=== PATIENT | female | born 1955 | race Caucasian/White ===

== ENCOUNTER 2018-09-17 18:01 | Emergency (ER) | payer MEDICAID, OTHER ==
[~2018-09-17] VITALS: Ht 152.4 cm; Wt 52.6 kg
--- NOTE | 2018-09-17 18:38 | ED Neurological Problem ---
General Chief Complaint: Neurological Problems Nursing Triage Note: Caregiver states that the patient had an episode of seizure like activity. Caregiver describes the patients hand kaykay up to her chest and patient was staring off, not responding to the people around her. Patient was incontinent during episode. Nursing Sepsis Screen: No Definite Risk Source: patient, family, EMS, RN notes reviewed, old records, caregiver Exam Limitations: no limitations History of Present Illness Date Seen by Provider: September 17, 2018 Time Seen by Provider: 18:05 Initial Comments Patient brought to the ED by EMS p/ reportedly having seizure like activity described as a relatively short period of her arms flexing up against her chest and the patient not being responsive to her surroundings. Was incontinent of bowel and bladder. (+) PMH of a seizure many years ago p/ suffering an anoxic brain injury secondary to a cardiac arrest. Timing/Duration: other (just DOCTOR OF DENTAL MEDICINE) Associated Symptoms: seizures (???) Allergies and Home Medications Allergies Coded Allergies: No Known Drug Allergies (Unverified , 09/17/18) Patient Home Medication List Home Medication List Reviewed: Yes Review of Systems Review of Systems Constitutional: see HPI : No Psychiatric/Neurological: See HPI, Tonic Clonic Seizures (???), Other (period of unresponsiveness) All Other Systems Reviewed Negative Unless Noted: Yes (Negative excepted noted.) Past Dwbbvez-Okbcqh-Ehqecg Hx Patient Social History Alcohol Use: Regular Use Alcohol Beverage of Choice: Beer Recreational Drug Use: No Smoking Status: Current Everyday Smoker Type Used: Cigarettes 2nd Hand Smoke Exposure: Yes Recent Foreign Travel: No Contact w/Someone Who Travel: No Recent Infectious Disease Expo: No Recent Hopitalizations: No Physical Abuse: No Sexual Abuse: No Mistreated: No Fear: No Immunizations Up To Date Tetanus Booster (TDap): Unknown Seasonal Allergies Seasonal Allergies: No Past Medical History Surgeries: Yes Coronary Stent, Hysterectomy Respiratory: No Cardiac: Yes (Cardiac Arrest) Heart Attack, High Cholesterol, Hypertension Neurological: Yes (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 0oz. 52.243305ar; BMI Method:Stated General Appearance: WD/WN, no apparent distress HEENT: PERRL/EOMI, normal ENT inspection, pharynx normal Neck: supple Respiratory: no respiratory distress Cardiovascular: regular rate, rhythm Gastrointestinal: non tender Neurologic/Psychiatric: alert, normal mood/affect, oriented x 3 Motor/Sensory: weak motor strength RUE (old), weak motor strength RLE (old) Skin: warm/dry Progress/Results/Core Measures Results/Orders Lab Results Laboratory Tests Test 09/17/18 19:02 09/17/18 19:50 Range/Units Urine Color YELLOW Urine Clarity CLEAR Urine pH 7.0 5-9 Urine Specific Garibaldi 1.010 L 1.016-1.022 Urine Protein NEGATIVE NEGATIVE Urine Glucose (UA) NEGATIVE NEGATIVE Urine Ketones NEGATIVE NEGATIVE Urine Nitrite NEGATIVE NEGATIVE Urine Bilirubin NEGATIVE NEGATIVE Urine Urobilinogen 0.2 NORMAL MG/DL Urine Leukocyte Esterase NEGATIVE NEGATIVE Urine RBC (Auto) NEGATIVE NEGATIVE Urine RBC NONE /HPF Urine WBC 0-2 /HPF Urine Squamous Epithelial Cells 2-5 /HPF Urine Crystals PRESENT H /LPF Urine Amorphous Sediment FEW SHAY URATES H /LPF Urine Bacteria NEGATIVE /HPF Urine Casts NONE /LPF Urine Mucus NEGATIVE /LPF Urine Culture Indicated NO White Blood Count 11.1 H 4.3-11.0 10^3/uL Red Blood Count 5.05 4.35-5.85 10^6/uL Hemoglobin 14.3 11.5-16.0 G/DL Hematocrit 45 35-52 % Mean Corpuscular Volume 89 80-99 FL Mean Corpuscular Hemoglobin 28 25-34 PG Mean Corpuscular Hemoglobin Concent 32 32-36 G/DL Red Cell Distribution Width 13.2 10.0-14.5 % Platelet Count 251 130-400 10^3/uL Mean Platelet Volume 10.2 7.4-10.4 FL Neutrophils (%) (Auto) 80 H 42-75 % Lymphocytes (%) (Auto) 15 12-44 % Monocytes (%) (Auto) 4 0-12 % Eosinophils (%) (Auto) 1 0-10 % Basophils (%) (Auto) 0 0-10 % Neutrophils # (Auto) 8.7 H 1.8-7.8 X 10^3 Lymphocytes # (Auto) 1.7 1.0-4.0 X 10^3 Monocytes # (Auto) 0.5 0.0-1.0 X 10^3 Eosinophils # (Auto) 0.1 0.0-0.3 10^3/uL Basophils # (Auto) 0.0 0.0-0.1 10^3/uL Sodium Level 138 135-145 MMOL/L Potassium Level 3.9 3.6-5.0 MMOL/L Chloride Level 97 L 98-107 MMOL/L Carbon Dioxide Level 24 21-32 MMOL/L Anion Gap 17 H 5-14 MMOL/L Blood Urea Nitrogen 12 7-18 MG/DL Creatinine 0.67 0.60-1.30 MG/DL Estimat Glomerular Filtration Rate > 60 BUN/Creatinine Ratio 18 Glucose Level 106 H 70-105 MG/DL Calcium Level 9.4 8.5-10.1 MG/DL Corrected Calcium 8.5-10.1 MG/DL Magnesium Level 1.9 1.8-2.4 MG/DL Total Bilirubin 0.2 0.1-1.0 MG/DL Aspartate Amino Transf (AST/SGOT) 24 5-34 U/L Alanine Aminotransferase (ALT/SGPT) 18 0-55 U/L Alkaline Phosphatase 69 40-136 U/L Troponin T < 6 <=10 NG/L Total Protein 8.1 6.4-8.2 GM/DL Albumin 4.6 H 3.2-4.5 GM/DL My Orders Orders - FRANCHESCA FLOWERS DO Cbc With Automated Diff (09/17/18 18:32) Comprehensive Metabolic Panel (09/17/18 18:32) Magnesium (09/17/18 18:32) Ua Culture If Indicated (09/17/18 18:32) Ekg Tracing (09/17/18 18:35) Troponin T (09/17/18 18:35) Ct Head Wo (09/17/18 19:37) Levetiracetam Tablet (Keppra Tablet) (09/17/18 21:15) Levetiracetam Tablet (Keppra Tablet) (09/17/18 21:15) Acetaminophen Tablet (Tylenol Tablet) (09/17/18 22:45) Medications Given in ED Vital Signs/I&O 09/17/18 09/18/18 18:02 01:55 Temp 96.9 Pulse 73 69 Resp 16 18 B/P (MAP) 149/60 (89) 124/65 (84) Pulse Ox 97 95 O2 Delivery Nasal Cannula Room Air O2 Flow Rate 2.00 Blood Pressure Mean: 89 Progress Progress Note : Progress Note Originally discussed the patient c/ [facility], which was the patient' s original transfer hospital of choice. That Neurologist didn't feel we needed to transfer the up to them and recommended loading her c/ [facility] and having her contact them and arrange a follow up appointment in their office. Patient and family were initially O.K. c/ this plan until the patient went to get up and felt dizzy/lightheaded and threw up. She then felt she couldn't go home. I think that is very reasonable. Think she needs a MRI sooner, than later & she ultimately needs an Neurology evaluation. Unfortunately, Neurology isn't available thru [facility], so she, & family requested to be transferred to [facility]. They were contacted and accepted the patient for transfer. Diagnostic Imaging Diagonstic Imaging: CT Plain Films/CT/US/NM/MRI: head (nothing acute) Departure Impression Primary Impression: Seizure Disposition: XF [facility]-TRM HOSP Condition: Stable Transfer Transfer Facility: [facility] Method of Transfer: EMS Departure-Patient Inst. Decision time for Depature: 23:00 FRANCHESCA FLOWERS DO September 17, 2018 18:38
[2018-09-17 19:19] LABS: BACTERIA,URINE NEGATIVE /HPF; BILIRUBIN,URINE NEGATIVE (NEGATIVE); CLARITY,URINE CLEAR; COLOR,URINE YELLOW; GLUCOSE, URINE (UA) NEGATIVE (NEGATIVE); KETONES,URINE NEGATIVE (NEGATIVE); LEUKOCYTE ESTERASE ,URINE NEGATIVE (NEGATIVE); NITRITE,URINE NEGATIVE (NEGATIVE); PROTEIN,URINE NEGATIVE (NEGATIVE); UROBILINOGEN,URINE 0.2 MG/DL (NORMAL); WBC,URINE 0-2 /HPF
[2018-09-17 19:20] LABS: AMORPHOUS SEDIMENT,UR FEW AMOR URATES /LPF
--- NOTE | 2018-09-17 20:10 | Diagnostic Imaging Report ---
PROCEDURE: CT head without contrast. TECHNIQUE: Multiple contiguous axial images were obtained through the brain without the use of intravenous contrast. Auto Exposure Controls were utilized during the CT exam to meet ALARA standards for radiation dose reduction. INDICATION: Seizure Ventricles and sulci are diffusely prominent. There is diffuse cerebellar atrophy. There is no evidence of hemorrhage or acute infarct. There is atherosclerotic calcification within distal internal carotid arteries. Calvarium is intact and the visualized paranasal sinuses are clear. IMPRESSION: Diffuse volume loss in the brain most pronounced in the cerebellum. No acute abnormality is detected. Dictated by: Dictated on workstation # [id number]
[2018-09-17 20:34] LABS: BASOPHILS % (AUTO) 0 % (0-10); EOSINOPHILS % (AUTO) 1 % (0-10); HEMATOCRIT 45 % (35-52); HEMOGLOBIN 14.3 G/DL (11.5-16.0); LYMPHOCYTES % (AUTO) 15 % (12-44); MEAN CORPUSCULAR HEMOGLOBIN 28 PG (25-34); MEAN CORPUSCULAR HGB CONC 32 G/DL (32-36); MEAN CORPUSCULAR VOLUME 89 FL (80-99); MEAN PLATELET VOLUME 10.2 FL (7.4-10.4); MONOCYTES % (AUTO) 4 % (0-12); NEUTROPHILS % (AUTO) 80 % (42-75); PLATELET COUNT 251 10^3/uL (130-400); RED CELL DISTRIBUTION WIDTH 13.2 % (10.0-14.5); WHITE BLOOD COUNT 11.1 10^3/uL (4.3-11.0)
[2018-09-17 20:35] LABS: BUN/CREATININE RATIO 18; CARBON DIOXIDE 24 MMOL/L (21-32); CHLORIDE 97 MMOL/L (98-107); CREATININE SERUM 0.67 MG/DL (0.60-1.30); EOSINOPHILS # (AUTO) 0.1 10^3/uL (0.0-0.3); GFR ESTIMATED > 60; GLUCOSE 106 MG/DL (70-105); LYMPHOCYTES # (AUTO) 1.7 X 10^3 (1.0-4.0); MONOCYTES # (AUTO) 0.5 X 10^3 (0.0-1.0); NEUTROPHILS # (AUTO) 8.7 X 10^3 (1.8-7.8); POTASSIUM 3.9 MMOL/L (3.6-5.0); SODIUM 138 MMOL/L (135-145)
[2018-09-17 20:36] LABS: ALANINE AMINOTRANSFERASE 18 U/L (0-55); ALBUMIN 4.6 GM/DL (3.2-4.5); ALKALINE PHOSPHATASE 69 U/L (40-136); BILIRUBIN,TOTAL 0.2 MG/DL (0.1-1.0); CALCIUM 9.4 MG/DL (8.5-10.1); MAGNESIUM 1.9 MG/DL (1.8-2.4); TOTAL PROTEIN 8.1 GM/DL (6.4-8.2)
[2018-09-17] MEDS ORDERED: LEVETIRACETAM 500 MG (KEPPRA) TAB PO ONE ×2 (21:15)
[2018-09-17] MEDS ORDERED: ACETAMINOPHEN 500 MG TAB (TYLENOL) PO ONE (22:45)
[2018-09-18 01:55] VITALS: BP 124/65
== END 2018-09-18 01:55 | disposition home or self-care (01) ==
LOC: ER FS 18:02
DX: R56.9 Unspecified convulsions (principal); I25.2 Old myocardial infarction; E78.00 Pure hypercholesterolemia, unspecified; I10 Essential (primary) hypertension; F17.210 Nicotine dependence, cigarettes, uncomplicated; Z87.820 Personal history of traumatic brain injury; Z86.74 Personal history of sudden cardiac arrest; Z90.710 Acquired absence of both cervix and uterus; Z95.5 Presence of coronary angioplasty implant and graft
CPT/HCPCS: 36415; 51702; 70450; 80053; 81000; 83735; 84484; 85025; 93005

== ENCOUNTER → 2019-07-02 | Outpatient (CLI) | payer MEDICAID ==
--- NOTE | 2019-07-02 15:54 | Diagnostic Imaging Report ---
Indication: Back injury from a fall AP and lateral views of lumbar spine shows a transitional S1 vertebra. There appears be slight anterior wedging of the vertebra labeled as L2. Age of this is indeterminate however. There is very slight spondylo-listhesis at L4-L5. IMPRESSION: Slight spondylolisthesis at L4-L5. Compression fracture L2 with slight anterior wedging of indeterminate age. Dictated by: Dictated on workstation # [id number]
--- NOTE | 2019-07-02 15:58 | Diagnostic Imaging Report ---
Indication: Left knee injury from a fall 3 views of the left knee show no fracture, dislocation or other acute abnormalities. IMPRESSION: Negative left knee Dictated by: Dictated on workstation # [id number]
--- NOTE | 2019-07-02 16:49 | Diagnostic Imaging Report ---
Indication: Back injury from a fall Thoracic spine AP and lateral views of the thoracic spine shows compression fracture T8 with slight anterior wedging. Alignment is normal. Disc spaces are maintained. IMPRESSION: Slight anterior wedging compression fracture of T8. Age of this is indeterminate. Dictated by: Dictated on workstation # [id number]
== END ==
LOC: RAD FS 15:21
PROVIDERS: ATTEND Family Medicine
DX: S89.92XA Unspecified injury of left lower leg, initial encounter (principal); M48.56XA Collapsed vertebra, not elsewhere classified, lumbar region, initial encounter for fracture; M48.54XA Collapsed vertebra, not elsewhere classified, thoracic region, initial encounter for fracture; M43.16 Spondylolisthesis, lumbar region; W19.XXXA Unspecified fall, initial encounter
CPT/HCPCS: 72072; 72100; 73562

== ENCOUNTER → 2019-08-02 | Outpatient (CLI) | payer MEDICAID ==
--- NOTE | 2019-08-02 14:17 | Diagnostic Imaging Report ---
INDICATION: Left knee pain status post fall. COMPARISON: 07/02/2019. FINDINGS: Three views of the left knee joint demonstrate no acute fracture or dislocation. No focal osseous lesions are seen. No significant joint effusion is seen. The surrounding soft tissue structures are unremarkable. There are no radiopaque foreign bodies. IMPRESSION: 1. No acute fractures or dislocations of the left knee joint. Dictated by: Dictated on workstation # [id number]
== END ==
LOC: RAD FS 14:02
PROVIDERS: ATTEND Nurse Practitioner
DX: M25.562 Pain in left knee (principal); S80.02XA Contusion of left knee, initial encounter; W19.XXXA Unspecified fall, initial encounter
CPT/HCPCS: 73562